=== PATIENT | female | born 1950 | race Caucasian/White ===

== ENCOUNTER → 2023-04-13 17:27 | Outpatient (REF) | payer MEDICARE, SELFPAY | LOC: RAD 17:27 | PROVIDERS: ATTENDING PHYSICIAN Physician Assistant Medical; FAMILY PHYSICIAN Family Medicine | DX: M25.572 Pain in left ankle and joints of left foot (principal) | CPT/HCPCS: 73610 ==

== ENCOUNTER 2024-07-28 19:22 | Emergency (ER) | payer MEDICARE, OTHER, SELFPAY ==
[2024-07-28] VITALS (7 sets, daily range): BP systolic 124–187; BP diastolic 66–128; BMI 31.1
[2024-07-28 19:52] LABS: % Basophils 0.3 % (0-2); % Eosinophils 0.9 % (0-6); % Immature Granulocytes 0.3 % (0-0.5); % Lymphocytes 24.7 % (20.5-51.1); % Monocytes 5.4 % (1.7-9.3); % Neutrophils 68.4 % (42.2-75.2); Absolute Eosinophils 0.1 10^3/uL (0-0.7); Absolute Lymphocytes 1.9 10^3/uL (1.2-3.4); Absolute Monocytes 0.4 10^3/uL (0.1-0.6); Absolute Neutrophils 5.2 10^3/uL (1.4-6.5); Hematocrit 47.2 % (37.0-47.0); Hemoglobin 15.6 g/dL (12.0-16.0); Mean Corp Hgb Conc. 33.1 g/dL (33.0-37.0); Mean Corpuscular Hgb 29.5 pg (27.0-31.0); Mean Corpuscular Volume 89.4 fL (81.0-99.0); Mean Platelet Volume 8.9 fL (7.4-10.4); Nucleated Red Blood Cells % 0 %; Platelet Count 252 10^3/uL (130-400); Red Blood Cell Count 5.28 10^6/uL (4.20-5.40); Red Cell Dist. Width 13.9 % (11.5-14.5); White Blood Cell Count 7.5 10^3/uL (4.8-10.8)
[2024-07-28 20:07] LABS: ALT (SGPT) 16 U/L (0-35); AST (SGOT) 21 U/L (14-36); Albumin 4.7 g/dl (3.5-5.0); Alkaline Phosphatase 44 U/L (38-126); Blood Urea Nitrogen 22 mg/dl (7-17); Calcium 10.4 mg/dl (8.4-10.2); Carbon Dioxide 25 mmol/L (22-30); Chloride 109 mmol/L (98-107); Glucose 189 mg/dl (70-99); Lipase 145 U/L (23-300); Sodium 145 mmol/L (135-145); Total Bilirubin 0.5 mg/dl (0.2-1.3); Total Protein 7.4 g/dl (6.3-8.2); eGFR > 60.00
--- NOTE | 2024-07-28 20:59 | ED.GENMED ---
History of Present Illness
<MASON Sebastian - Last Filed: 07/28/24 21:39>
General
Chief Complaint: Flank Pain
Source: patient
Exam Limitations: none
Time Seen by Provider: 07/28/24 20:20
History of Present Illness
History of Present Illness:
This is a 74 y/o F with a PMH of MA s/p stents, HTN and HLD who presents with L flank pain x 1 day. The pain started in the middle of her back radiating to R flank over the weekend and now is on the left flank. She describes this as a 'throbbing'
pain that is constant. She endorses chronic constipation that is unchanged. She denies fevers, shortness of breath, chest pain, abdominal pain, nausea, vomiting, diarrhea, hematuria or dysuria.
She denies a PMH of ureterolithiasis and AAA. She had a cholecystectomy many years ago. She is a former smoker and former alcohol user.
Review of Systems
<MASON Sebastian - Last Filed: 07/28/24 21:39>
Review of Systems
Constitutional: Denies fever
EENT: Reports no symptoms
Respiratory: Reports no symptoms
ABD/GI: Reports constipated (chronic)
: Reports frequency (nocturia, chronic) and flank pain; Denies dysuria or bleeding
Musculoskeletal: Reports no symptoms
Neurological: Reports no symptoms
Phy Exam
<MASON Sebastian - Last Filed: 07/28/24 21:39>
General Physical Exam
General Presentation: mild distress
Course
<MASON Sebastian - Last Filed: 07/28/24 21:39>
Orders/Labs/Results
Orders:
Orders
07/28/24 19:28
IV Insert/Care/Rem.- Treatment PRN
Straight cath- Treatment ONCE
Urinalysis Reflex To Culture Urgent
Date Specimen was Collected: 07/28/24
Time Specimen was Collected: 19:28
07/28/24 19:41
Complete Blood Count/With Diff Urgent
Comprehensive Metabolic Panel Urgent
Lipase Urgent
07/28/24 20:48
CT Abd/pelvis Angio W/wo Iv Urgent
Comment:
Reason For Exam: pain possible AAA
HYDROmorphone [Dilaudid] 0.5 mg IV NOW STA
07/28/24 22:34
Magnesium Hydroxide [Milk of Magnesia] 30 ml PO NOW STA
Abnormal Lab Results
07/28/24
19:41
Hct 47.2 H %
(37.0-47.0)
Chloride 109 H mmol/L
(98-107)
BUN 22 H mg/dl
(7-17)
Glucose 189 H mg/dl
(70-99)
Calcium 10.4 H mg/dl
(8.4-10.2)
07/28/24 19:41
07/28/24 19:41
Vital Signs
Initial and Last Documented VS:
Initial Vital Signs
Temp Pulse Resp BP Pulse Ox
98.2 F 93 19 187/128 98
07/28/24 19:24 07/28/24 19:24 07/28/24 19:24 07/28/24 19:24 07/28/24 19:24
Last Documented Vital Signs
Temp Pulse Resp BP Pulse Ox
98.2 F 84 22 149/92 95
07/28/24 19:24 07/28/24 22:30 07/28/24 22:30 07/28/24 22:30 07/28/24 22:30
Sabalt;Flip Chow, DO - Last Filed: 07/28/24 22:43>
Orders/Labs/Results
Orders:
Orders
07/28/24 19:28
IV Insert/Care/Rem.- Treatment PRN
Straight cath- Treatment ONCE
Urinalysis Reflex To Culture Urgent
Date Specimen was Collected: 07/28/24
Time Specimen was Collected: 19:28
07/28/24 19:41
Complete Blood Count/With Diff Urgent
Comprehensive Metabolic Panel Urgent
Lipase Urgent
07/28/24 20:48
CT Abd/pelvis Angio W/wo Iv Urgent
Comment:
Reason For Exam: pain possible AAA
HYDROmorphone [Dilaudid] 0.5 mg IV NOW STA
07/28/24 22:34
Magnesium Hydroxide [Milk of Magnesia] 30 ml PO NOW STA
Abnormal Lab Results
07/28/24
19:41
Hct 47.2 H %
(37.0-47.0)
Chloride 109 H mmol/L
(98-107)
BUN 22 H mg/dl
(7-17)
Glucose 189 H mg/dl
(70-99)
Calcium 10.4 H mg/dl
(8.4-10.2)
07/28/24 19:41
07/28/24 19:41
Vital Signs
Initial and Last Documented VS:
Initial Vital Signs
Temp Pulse Resp BP Pulse Ox
98.2 F 93 19 187/128 98
07/28/24 19:24 07/28/24 19:24 07/28/24 19:24 07/28/24 19:24 07/28/24 19:24
Last Documented Vital Signs
Temp Pulse Resp BP Pulse Ox
98.2 F 84 22 149/92 95
07/28/24 19:24 07/28/24 22:30 07/28/24 22:30 07/28/24 22:30 07/28/24 22:30
Sabalt;Flip Chow DO - Last Filed: 07/28/24 22:43>
MDM/Problems Addressed
Differential Diagnosis Includes:
AAA nephrolithiasis muscle strain UTI
MDM/Problems Addressed:
Flank pain
Chronic conditions affecting care: HTN
Acute Exacerbation and/or Progression of Chronic Illness: HTN
<Flip Chow DO - Last Filed: 07/28/24 22:43>
*Radiology
Radiology exam reviewed: radiology read reviewed
*Pulse Oximetry
Patient hypoxic: no
*Critical Care Note
Total Time (30-74mins, 75-104mins- exclusive of procedures): Not Applicable
<Flip Chow DO - Last Filed: 07/28/24 22:43>
Update Note
Update Note:
10:[address] report noted
Started on bowel regimen
ED Attending Note
<MASON Sebastian - Last Filed: 07/28/24 21:39>
-
Portions of this chart may have been created with voice recognition software.� Occasional wrong word or��sound alike� substitutions may have occurred due to the inherent limitations of voice recognition software.
<Flip Chow DO - Last Filed: 07/28/24 22:43>
ED Attending Note
Patient seen and examined by attending physician: Yes
I performed a history and physical exam of patient and discussed management with resident, I reviewed resident's note and agree with documented findings and plan of care.: Yes
ED Attending Note:
Seen with student examined independently 74-year-old female hypertension atraumatic left flank pain onset a few days ago blood pressure up here, no dysuria or frequency, no hematuria no history of kidney stones, no known AAA
Discharge Plan
Departure
Patient Disposition: Home (Routine Discharge)
Date of Disposition: 07/28/24
Time of Disposition: 22:35
Patient with high blood pressure during this ER visit?: No
Condition: Good
Discharge Problem:
Nausea, Constipation
Instructions: Flank Pain (DC)
Prescriptions:
New
magnesium citrate [Citrate of Magnesia] Solution
300 ml PO DAILY PRN (Reason: Constipation) Qty: 296 5RF
ibuprofen 600 mg tablet
600 mg PO Q8H PRN (Reason: Pain) Qty: 20 0RF
Referrals:
UNKNOWN - PT DOES,NOT KNOW [Unknown Provider]
Interventions
Interventions:
*Risk Screen - Suicide Last Done: 07/28/24 19:24
*General Assessment Last Done: 07/28/24 20:46
*Neglect/Abuse Screening Last Done: 07/28/24 19:24
*ED- Fall Risk Assessment Last Done: 07/28/24 20:46
WB-Ghrhlr-Uxbcbxknhc Assessment Last Done: 07/28/24 20:46
ED-Female Genitourinary Assessment Last Done: 07/28/24 20:46
Discharge Date and Time
Print Language: SINHALA
[2024-07-28] MEDS: DILAUDID 0.5 MG IV (21:02)
[2024-07-28] MEDS: MILK OF MAGNESIA 30 ML PO (23:01)
[2024-07-28] MEDS: TORADOL 30 MG IV (23:01)
[2024-07-28 23:09] LABS: Urine Albumin 4+ (Neg - Trace); Urine Bilirubin Negative (Negative); Urine Character Clear (Clear); Urine Color Yellow; Urine Glucose Negative (Negative); Urine Ketone Negative (Negative); Urine Leukocyte 2+ (Negative); Urine Nitrite Negative (Negative); Urine Occult Blood 1+ (Negative); Urine Specific Gravity 1.015 (<1.030); Urine Urobilinogen Negative (Neg - 1+)
[2024-07-28 23:13] LABS: Urine Squamous Cell >30 /LPF (Few)
[2024-07-28 23:15] LABS: Urine Bacteria Few (Negative); Urine Red Blood Cell 0-2 /HPF (0-2); Urine White Cell 70-80 /HPF (0-5)
== END 2024-07-28 23:50 | disposition home or self-care (01) ==
LOC: EMR 19:22
PROVIDERS: Emergency Medicine; EMERGENCY PHYSICIAN Emergency Medicine; FAMILY PHYSICIAN Family Medicine
DX: K59.00 Constipation, unspecified (principal); R11.0 Nausea; E78.5 Hyperlipidemia, unspecified; I10 Essential (primary) hypertension; Z87.891 Personal history of nicotine dependence; Z90.49 Acquired absence of other specified parts of digestive tract
CPT/HCPCS: 96374; 96375; 99284; 74174; 80053; 81003; 81015; 83690; 85025; 87086; Q9967